=== PATIENT | male | born 1995 | race African-American/Black ===

== ENCOUNTER 2018-08-18 15:15 | Emergency (ER) | payer OTHER ==
[~2018-08-18] VITALS: Ht 188 cm; Wt 94.5 kg
[2018-08-18] MEDS ORDERED: dexameTHASONE 20 MG/5 ML VIAL (J1100) IV ONE (16:15)
[2018-08-18] MEDS ORDERED: NS 1,000 ML IV ONE (16:15)
[2018-08-18 16:35] LABS: BASO % 0.6 % (0.0-1.0); EOS # 0.2 10^3/uL (0.0-0.50); EOS % 4.7 % (0.0-3.0); HEMATOCRIT 44.1 % (42.0-52.0); HEMOGLOBIN 14.7 g/dl (13.5-17.5); LYMPH # 1.4 10^3/uL (1.5-6.5); LYMPH % 29.1 % (24.0-44.0); MEAN CORPUSCULAR HEMOGLOBIN 30.6 pg (27.0-33.0); MEAN CORPUSCULAR HGB CONC 33.3 g/dl (32.0-36.5); MEAN CORPUSCULAR VOLUME 91.9 fl (80.0-96.0); MONO # 0.7 10^3/uL (0.0-0.8); MONO % 14.5 % (0.0-5.0); NEUTROPHILS # 2.4 10^3/uL (1.8-7.7); NEUTROPHILS % 50.9 % (36.0-66.0); PLATELET COUNT, AUTOMATED 251 10^3/uL (150-450); WHITE BLOOD COUNT 4.7 10^3/uL (4.0-10.0)
[2018-08-18 16:58] LABS: BLOOD UREA NITROGEN 10 MG/DL (7-18); CALCIUM LEVEL 9.5 MG/DL (8.5-10.1); CARBON DIOXIDE LEVEL 27 MEQ/L (21-32); CHLORIDE LEVEL 106 MEQ/L (98-107); CREATININE FOR GFR 0.98 MG/DL (0.70-1.30); GLOMERULAR FILTRATION RATE > 60.0 (>60); GLUCOSE, FASTING 89 MG/DL (70-100); POTASSIUM SERUM 4.1 MEQ/L (3.5-5.1); SODIUM LEVEL 140 MEQ/L (136-145)
[2018-08-18 16:59] LABS: MONO REFLEX EBV COMP NEGATIVE (NEGATIVE)
[2018-08-18] MEDS ORDERED: ISOVUE-370 76% 125ML VIAL (Q9967 PER ML) As Ordered ONE (17:01)
[2018-08-18] MEDS ORDERED: NAPR-50 PO (17:38)
[2018-08-18 17:42] VITALS: BP 129/85
--- NOTE | 2018-08-18 20:58 | REP ---
CT SOFT TISSUES NECK WITH IV CONTRAST: CT soft tissues neck performed following the intravenous administration of 100 mL of Isovue-370. Sagittal and coronal reconstruction images are performed. There is mild enlargement of the right palatine tonsil. No abscess is seen in the soft tissues of the neck. No adenopathy is seen. The thyroid, parotid and submandibular glands appear unremarkable. Airway is patent. There is no evidence of airway narrowing. Visualized osseous structures are unremarkable. Visualized paranasal sinuses are clear with no air fluid levels. The mastoid air cells are well aerated. IMPRESSION: Mild enlargement of the right palatine tonsil with no evidence of abscess. Electronically Signed by Lewis Mendes MD 08/19/2018 06:41 P
[2018-08-22 00:07] LABS: EBV VIRAL CAPSID AG IgM <36.0 U/mL (0.0-35.9)
== END 2018-08-18 17:48 | disposition home or self-care (01) ==
LOC: M ED 15:15
DX: J03.90 Acute tonsillitis, unspecified (principal)
CPT/HCPCS: 36415; 70491; 80048; 85025; 86308; 86663; 86664; 86665; 87880; 96374; 99284; J1100; Q9967